=== PATIENT | female | born 1975 | race Caucasian/White ===

== ENCOUNTER 2016-12-04 09:15 | Emergency (ER) | payer BC ==
[2016-12-04 09:53] LABS: BASOPHILS % 0.2 (0.0-1.5); EOSINOPHILS % 0.3 % (0.0-6.8); LYMPHOCYTES # 1.3 # k/uL (0.6-4.0); MEAN CORPUSCULAR HEMOGLOBIN 23.9 pg (28.0-34.0); MONOCYTES # 0.5 # k/uL (0.0-0.9); MONOCYTES % 6.5 % (0.0-11.0); NEUTROPHILS # 5.7 # k/uL (1.4-7.7)
[2016-12-04 10:04] LABS: eGFR (African) > 60; eGFR (Non-African) > 60
[2016-12-04] MEDS ORDERED: NITROGLYCERIN IV ONE (10:17)
[2016-12-04] MEDS ORDERED: DEXTROSE IV ONE (10:17)
[2016-12-04] MEDS ORDERED: HEPARIN SODIUM,PORCINE/D5W 20,000 UNIT in PREMIX BAG 1 BAG IV ONE (10:17)
[2016-12-04] MEDS ORDERED: HEPARIN SODIUM 5000 UNIT/1 ML IV ONE (10:17)
[2016-12-04] MEDS ORDERED: HEPARIN SODIUM,PORCINE/D5W 20,000 UNIT/500 ML BAG IV ONE (10:21)
[2016-12-04] MEDS ORDERED: NITROGLYCERIN/D5W 50 MG/250 ML ML IV ONE (10:21)
[2016-12-04] MEDS ORDERED: HEPARIN SODIUM 5000 UNIT/1 ML ONE (10:21)
--- NOTE | 2016-12-04 10:27 | ED Physician Documentation ---
Dyspnea - HISTORIAN Historian: patient - HPI Stated Complaint: Shortness of Breath Chief Complaint: Dyspnea Additional Information: dyspnea with exertion since yesterday, new, no chest pain Onset: days ago (1) Duration: continues in ED Initiating Event: out of meds (pt. cannot afford medications so she doesn't take her heart meds) Context: exertional Severity: moderate Exacerbated By: exertion Associated Symptoms: heart racing, light-headedness, hands tingling, face tingling Further Comments: no - ROS CONST: no problems EYES/ENT: none GI/: none LNMP: 11/20/16 NEURO/PSYCH: denies: headache MS/SKIN/LYMPH: none - PAST HX Lung Disease: none Cardiac Disease: CHF, CAD PE Risk Factors: other (medication nooncompliance) Surgeries/Procedures: cardiac bypass, cardiac cath, other (c-sect) Other History: other (lupus) Immunizations: referred to PCP Allergies/Adverse Reactions: Allergies Allergy/AdvReac Type Severity Reaction Status Date / Time No Known Drug Allergies Allergy Unknown Verified 12/04/16 09:41 Home Medications: Ambulatory Orders Medication Instructions Recorded Naproxen [Naprosyn] 500 mg PO DAILY 04/30/15 Aspirin EC [Ecotrin] 81 mg PO DAILY 02/01/16 - SOCIAL HX Smoking History: cigarettes (1 ppd) Alcohol Use: none Drug Use: none - FAMILY HX Family History: cardiac disease - VITAL SIGNS Vital Signs: Vital Signs Temp Pulse Resp BP Pulse Ox 97 F L 100 H 24 128/76 98 12/04/16 09:15 12/04/16 09:15 12/04/16 09:15 12/04/16 09:15 12/04/16 09:15 - REVIEWED ASSESSMENTS Nursing Assessment Reviewed: Yes Vitals Reviewed: Yes Progress - Results/Orders Results/Orders: cbc, cmp, ua, pt/ptt/inr, trop, bnp, ekg, cxr, ct abd. without contrast ordered - Progress Progress: Pt. started on 2 liters O2 NC, NS at KVO, Nitro drip at 6ml/hr, Heparin 5000 IU IVP and drip at 1200 IU/hr, asa 324 mg p.o. Critical Care Note - Critical Care Note Total Time (mins): 30 Comments: pt. presents in dyspneic state, work up shows acute MD, non stemi ED Results Lab/Radiology - Lab Results Lab Results: Lab Results 12/04/16 12/04/16 12/04/16 09:45 09:45 09:45 WBC 7.60 K/ul K/ul (4.00-12.00) RBC 4.31 M/ul M/ul (3.90-5.20) Hgb 10.3 g/dL L g/dL (12.0-16.0) Hct 35.4 % % (34.5-46.5) MCV 82.2 fl fl (80.0-100.0) MCH 23.9 pg L pg (28.0-34.0) MCHC 29.1 g/dL L g/dL (30.0-36.0) RDW 16.2 % H % (11.3-14.3) Plt Count 225 K/mm3 K/mm3 (130-400) Neut % (Auto) 74.4 % % (39.0-79.0) Lymph % (Auto) 17.3 % % (16.0-50.0) [place] % (Auto) 6.5 % % (0.0-11.0) Eos % (Auto) 0.3 % % (0.0-6.8) Baso % (Auto) 0.2 (0.0-1.5) Neut # 5.7 # k/uL # k/uL (1.4-7.7) Lymph # 1.3 # k/uL # k/uL (0.6-4.0) [place] # 0.5 # k/uL # k/uL (0.0-0.9) Eos # 0.0 # k/uL # k/uL (0.0-0.6) Baso # 0.0 # k/uL # k/uL (0.0-0.5) Reactive Lymphs % 1.3 % % (0.0-5.0) Reactive Lymphs # 0.1 # k/uL # k/uL (0.0-0.8) Sodium 142 mmol/L mmol/L (136-145) Potassium 4.2 mmol/L mmol/L (3.5-5.0) Chloride 106 mmol/L mmol/L (98-110) Carbon Dioxide 26 mmol/L mmol/L (20-32) BUN 18 mg/dL mg/dL (10-26) Creatinine 0.8 mg/dL mg/dL (0.4-1.5) Estimated Creat Clear 165 Est GFR ( Amer) > 60 (60 - ) Est GFR (Non-Af Amer) > 60 (60 - ) Glucose 131 mg/dL H mg/dL (70-99) Calcium 10.1 mg/dL mg/dL (8.5-10.5) Total Bilirubin 0.7 mg/dL mg/dL (0.2-1.2) AST 24 U/L U/L (0-41) ALT 14 U/L U/L (0-45) Alkaline Phosphatase 96 U/L U/L (46-116) Troponin I 2.36 ng/mL H ng/mL (0.03-0.06) NT-Pro-B Natriuret Pep 5859.5 pg/mL H pg/mL (15.0-125.0) Total Protein 8.0 g/dL g/dL (6.0-8.5) Albumin 4.1 g/dL g/dL (3.0-5.5) - Radiology Radiology Impressions: cxr shows dilated cardiomyopathy, right sided lung mass, CABG sternotomy wires - Orders Orders: ED Orders Category Date Time Status Continuous EKG monitoring Q1H Care 12/04/16 09:42 Active Continuous Pulse Oximetry Q1H Care 12/04/16 09:[address] Saline Lock/IV Now Care 12/04/16 09:42 Active CHEST 2 VIEW [CHEST P.A.&LAT 2 VIEWS] [RAD] Stat Exams 12/04/[address] ABD & PELVIS W/O CON Stat Exams 12/04/16 Ordered BNP [NT-proBNP] Routine Lab 12/04/16 09:45 Completed CBC/PLATELET/DIFF Routine Lab 12/04/16 09:45 Completed CMP Routine Lab 12/04/16 09:45 Completed HCG [URINE HCG] Routine Lab 12/04/16 Uncollected PT [PT-INR] Routine Lab 12/04/16 Ordered PTT Routine Lab 12/04/16 Ordered TROPONIN I (cTnI) Routine Lab 12/04/16 09:45 Completed URINALYSIS Routine Lab 12/04/16 10:04 Ordered Heparin Sodium [Heparin] Med 12/04/16 10:21 Discontinued 5,000 unit .ROUTE .STK-MED ONE Heparin Sodium [Heparin] Med 12/04/16 10:17 Once 5,000 unit IV NOW ONE Heparin Sodium,Porcine/D5w [Heparin] Med 12/04/16 10:21 Discontinued 20,000 unit in 500 ml IV .STK-MED Heparin Sodium,Porcine/D5w [Heparin] 20,000 unit Med 12/04/16 10:17 Ordered Premix Bag [Premix Fluid] 1 bag IV NOW NITROGLYCERIN/D5W @ 6 MLS/HR(250ml) Med 12/04/16 10:17 Ordered Nitroglycerin/D5w [Ntg 0.2 mg/ml in D5w] 250 ml IV 1T EKG WITH COMPARISON Stat Ther 12/04/16 09:42 Ordered Dyspnea Physical Exam - EXAM General Appearance: moderate distress EENT: eye inspection normal, ENT inspection normal, pharynx normal, no signs of dehydration, DEIRDRE, no nystagmus, TM's nml Neck: nml inspection (no bruits, no jvd) Respiratory: breath sounds nml, speaks full sentences, respiratory distress ( mild). No: prolonged expirations, dull on percussion, retractions, splinting, accessory muscle use, decreased air movement, wheezes, rales, stridor CVS: reg. rate & rhythm, pulses equal, murmur Abdomen: non-tender, other (positive fluid wave) Skin: no rash, pallor. No: diaphoresis Extremities: non-tender, normal range of motion, no evidence of injury, no edema Neuro/Psych: oriented x3, CN's nml as tested, motor nml, sensation nml, mood/ affect nml Discharge Clincal Impression: Acute MD Qualifiers: Myocardial infarction ST status: non-ST elevation myocardial infarction Qualified Code(s): I21.4 - Non-ST elevation (NSTEMI) myocardial infarction Referrals: Arelis Vaughan MD [Primary Care Provider] - 2 Days Home Medications: Ambulatory Orders Naproxen [Naprosyn] 500 mg PO DAILY 04/30/15 Aspirin EC [Ecotrin] 81 mg PO DAILY 02/01/16 Comments: Case discussed with Dr. Vasquez at [facility] who accepts transfer. Pt. transferred by ground EMS in stable condition. Condition: Stable Disposition: 02 XFER SHT-TRM HOSP Decision to Admit: NO Decision Time: 10:45
[2016-12-04] MEDS ORDERED: 0.9 % SODIUM CHLORIDE 1,000 ML IV ONE (10:34)
[2016-12-04] MEDS ORDERED: 0.9 % SODIUM CHLORIDE 1,000 ML IV SCH (11:00)
[2016-12-04] MEDS ORDERED: ASPIRIN 81 MG CHEW TAB ONE (11:06)
[2016-12-04] MEDS ORDERED: ASPIRIN 325 MG TABLET PO ONE (11:06)
[2016-12-04 11:29] VITALS: BP 131/92
--- NOTE | 2016-12-04 15:49 | Diagnostic Imaging Report ---
[facility] [address] [facility].[address] [address] Report Submission Date: Dec 04, 2016 10:51:44 AM SHOE ASSOCIATE Patient Study Name: PORFIRIO MADRID Date: Dec 04, 2016 10:11:08 AM SHOE ASSOCIATE Modality Type: CR Gender: F Description: CHEST : 77 Institution: [facility] Physician: JULISSA BYNUM Chest -two views CLINICAL HISTORY: Shortness of breath. FINDINGS: Examination of the chest in PA and lateral views with comparison to examination 02/01/2016 demonstrates 3.8 cm right lower lobe mass that does not appear significantly changed in size. The cardiac silhouette is enlarged and the aorta is atherosclerotic. There are multiple sternotomy wires. Monitor leads superimpose the chest. There are surgical clips consistent with previous bypass grafting. IMPRESSION: Right lower lobe mass without significant change since 02/01/2016. Postoperative chest. Cardiomegaly and aortic atherosclerosis. Electronically signed on Dec 04, 2016 10:51:44 AM SHOE ASSOCIATE by: Raymon MYERS
--- NOTE | 2016-12-04 15:49 | Diagnostic Imaging Report ---
[facility] [address] [facility] [address] [place], [place]. 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 TECHNIQUE: CT of the abdomen and pelvis is performed without oral or intravenous administration of contrast. Sagittal and coronal reconstructions are performed by the technologist. FINDINGS: There is right lower lobe mass that is incompletely visualized, but measures 2.2 cm on the available image. This is the superior most slice of the examination and may not completely include the mass. Heart is enlarged. There is right pleural effusion. Liver and spleen demonstrate fairly normal attenuation without focal defect. Gallbladder is contracted with small gallstone. There is fluid in the gallbladder fossa and a small amount of fluid adjacent to the liver. There is no pancreatic or adrenal abnormality. The kidneys are of normal size, shape and position. Vascular calcification is present in the abdominal aorta extending into the iliac vessels. There is a small amount of free fluid in the pelvis. There are clips in the pelvis consistent with previous tubal ligation. The uterus is unremarkable. The appendix is visualized and is within normal limits. Stool is present throughout the colon. IMPRESSION: Incompletely visualized 2.2 cm mass in right lower lobe. Small amount of ascites and small right pleural effusion. Cholelithiasis. Negative appendix. Bilateral spondylolysis at L5 with grade 1 anterolisthesis of L5 on S1. Electronically signed on Dec 04, 2016 10:55:45 AM RETAIL ADVERTISING SALES MANAGER by: Raymon MYERS
== END 2016-12-04 11:18 | disposition short-term general hospital (02) ==
LOC: ED 09:15
DX: I21.4 Non-ST elevation (NSTEMI) myocardial infarction (principal)
CPT/HCPCS: 36415; 71020; 74176; 80053; 83880; 84484; 85025; 85610; 85730; A9270; J1644; J3490; J7030; 96365; 96366; 99284; S1016

== ENCOUNTER 2016-12-09 12:25 | Emergency (ER) | payer BC ==
[2016-12-09 12:42] LABS: BASOPHILS % 0.5 (0.0-1.5); EOSINOPHILS % 0.7 % (0.0-6.8); LYMPHOCYTES # 2.7 # k/uL (0.6-4.0); MEAN CORPUSCULAR HEMOGLOBIN 23.5 pg (28.0-34.0); MONOCYTES # 0.8 # k/uL (0.0-0.9); MONOCYTES % 6.9 % (0.0-11.0); NEUTROPHILS # 7.2 # k/uL (1.4-7.7)
[2016-12-09 12:58] LABS: eGFR (African) > 60; eGFR (Non-African) > 60
--- NOTE | 2016-12-09 13:21 | ED Physician Documentation ---
Chest Pain - HISTORIAN Historian: patient - HPI Stated Complaint: shortness of breath, dizzy, chest pain Chief Complaint: Chest Pain Onset: days ago (2 days ago) Timing: still present Duration: waxing, waning Last known Well Date: 12/05/16 Last Known Well Time: 22:00 Quality: stabbing (when she bends over) Chest Pain Radiation: no radiation Chest Pain Signs/Symptoms: dizziness, dyspnea Worsened By: exertion Relieved By: nothing Further Comments: yes (41 year old female patient presents with complaints of SOB and chest pain when she bends over. Patient complaints of SOB with exerction. Patient reports having cardiac stent placed on Wednesday at [facility], does not know which vessel. States she has not felt well for the past 2 days, is concerned her "stent isn't working".) - ROS CONST: recent illness MS/LYMPH: none GI/: abdominal pain. denies: vomiting, nausea EYES/ENT: none SKIN/ENDO: none NEURO/PSYCH: none - PAST HX IL risk factors: hyperlipidemia, cardiac disease, AMI, CHF TAD/AAA risk factors: none Neuro deficit: none GI disease: gall stones Surgeries/Procedures: cardiac bypass, cardiac stent Allergies/Adverse Reactions: Allergies Allergy/AdvReac Type Severity Reaction Status Date / Time No Known Drug Allergies Allergy Unknown Verified 12/04/16 09:41 Home Medications: Ambulatory Orders Medication Instructions Recorded Naproxen [Naprosyn] 500 mg PO DAILY 04/30/15 Aspirin EC [Ecotrin] 81 mg PO DAILY 02/01/16 - SOCIAL HX Smoking History: cigarettes - FAMILY HX Family HX: CAD under 55 - VITAL SIGNS Vital Signs: Vital Signs Temp Pulse Resp BP Pulse Ox 97.9 F 88 22 125/77 98 12/09/16 12:25 12/09/16 12:25 12/09/16 12:25 12/09/16 12:25 12/09/16 12:25 - REVIEWED ASSESSMENTS Nursing Assessment Reviewed: Yes Vitals Reviewed: Yes Progress - Progress Progress: Patient very mottled and cool to touch on arrival, poor historian. Records reviewed from Wednesday12/04/2015 - Trop 2.36, BNP 5859.5 Lab results reviewed, will progress with CT chest to R/O dissection or PE. Troponin down to .9 1410 Call to [facility], on bed hold 1418 Updated patient, agrees to transfer to [place]. Call to [place] [address] Spoke with [place], case discussed with Dr Allen. [address] Allen. 800cc output in [place] after Lasix IV ED Results Lab/Radiology - Lab Results Lab Results: Lab Results 12/09/16 12/09/16 12/09/16 12:40 12:40 12:40 WBC RBC Hgb Hct MCV MCH MCHC RDW Plt Count Neut % (Auto) Lymph % (Auto) Isabela % (Auto) Eos % (Auto) Baso % (Auto) Neut # Lymph # Isabela # Eos # Baso # Reactive Lymphs % Reactive Lymphs # PT 12.9 Seconds H Seconds (9.7-11.5) INR 1.2 H (0.9-1.1) APTT 20.6 Seconds L Seconds (24.5-32.8) Sodium 138 mmol/L mmol/L (136-145) Potassium 3.9 mmol/L mmol/L (3.5-5.0) Chloride 103 mmol/L mmol/L (98-110) Carbon Dioxide 30 mmol/L mmol/L (20-32) BUN 22 mg/dL mg/dL (10-26) Creatinine 0.9 mg/dL mg/dL (0.4-1.5) Est GFR ( Amer) > 60 (60 - ) Est GFR (Non-Af Amer) > 60 (60 - ) Glucose 139 mg/dL H mg/dL (70-99) Calcium 9.7 mg/dL mg/dL (8.5-10.5) Total Bilirubin 0.5 mg/dL mg/dL (0.2-1.2) AST 28 U/L U/L (0-41) ALT 34 U/L U/L (0-45) Alkaline Phosphatase 94 U/L U/L (46-116) Creatine Kinase 44 U/L U/L (0-225) Troponin I 0.90 ng/mL H ng/mL (0.03-0.06) Total Protein 8.2 g/dL g/dL (6.0-8.5) Albumin 4.1 g/dL g/dL (3.0-5.5) 12/09/16 12:40 WBC 11.10 K/ul K/ul (4.00-12.00) RBC 4.79 M/ul M/ul (3.90-5.20) Hgb 11.2 g/dL L g/dL (12.0-16.0) Hct 39.9 % % (34.5-46.5) MCV 83.4 fl fl (80.0-100.0) MCH 23.5 pg L pg (28.0-34.0) MCHC 28.1 g/dL L g/dL (30.0-36.0) RDW 19.7 % H % (11.3-14.3) Plt Count 245 K/mm3 K/mm3 (130-400) Neut % (Auto) 65.2 % % (39.0-79.0) Lymph % (Auto) 24.5 % % (16.0-50.0) Isabela % (Auto) 6.9 % % (0.0-11.0) Eos % (Auto) 0.7 % % (0.0-6.8) Baso % (Auto) 0.5 (0.0-1.5) Neut # 7.2 # k/uL # k/uL (1.4-7.7) Lymph # 2.7 # k/uL # k/uL (0.6-4.0) Isabela # 0.8 # k/uL # k/uL (0.0-0.9) Eos # 0.1 # k/uL # k/uL (0.0-0.6) Baso # 0.0 # k/uL # k/uL (0.0-0.5) Reactive Lymphs % 2.2 % % (0.0-5.0) Reactive Lymphs # 0.2 # k/uL # k/uL (0.0-0.8) PT INR APTT Sodium Potassium Chloride Carbon Dioxide BUN Creatinine Est GFR ( Amer) Est GFR (Non-Af Amer) Glucose Calcium Total Bilirubin AST ALT Alkaline Phosphatase Creatine Kinase Troponin I Total Protein Albumin - Radiology Radiology Impressions: Computed tomography of the chest with contrast History: 2 days of shortness of breath and chest pain Findings: Transverse chest sections are obtained after 86 mL intravenous omnipaque 350. Small left and moderate right pleural effusions and artery bypass grafting, mild diffuse cardiomegaly, and pulmonary edema are observed. Patchy subsegmental infiltrate or edema is observed in the right middle lobe and right lower lobe. Mild left lower lobe atelectasis is present. An oval 2.8 x 2.9 cm lateral right lower lobe mass is present. Multiple enlarged lymph nodes are present in each axilla left supraclavicular region, and throughout the mediastinum. Upper abdomen sections reveal splenomegaly and right subphrenic ascites. Compared to the exam performed 5 days ago, basilar infiltrates or edema and pleural effusions have markedly increased. Impression: 1. Worsening anasarca with increased pulmonary edema and pleural effusions since the prior abdomen CT. 2. Interval development of bibasilar infiltrates versus confluent edema and atelectasis. 3. 2.9 cm lateral right lower lobe neoplasm as described 5 days ago[address] Recommend PET CT followup. 4. Indeterminate left supraclavicular, mediastinal, and bilateral hilar lymphadenopathy with splenomegaly. Lymphoproliferative disease cannot be excluded. 5. Coronary artery bypass grafting and global cardiomegaly. Electronically signed on Dec 09, 2016 1:44:58 PM PARKING TECHNICIAN by: Aris Escalante - Orders Orders: ED Orders Category Date Time Status Continuous EKG monitoring Q30M Care 12/09/16 12:35 Active Continuous Pulse Oximetry Q30M Care 12/09/16 12:[address] Saline Lock/IV NOW Care 12/09/16 12:[address] CHEST W/ CONTRAST Stat Exams 12/09/16 Ordered CBC/PLATELET/DIFF Stat Lab 12/09/16 12:40 Completed CMP Stat Lab 12/09/16 12:40 Completed CREATINE KINASE Stat Lab 12/09/16 12:40 Completed PT-INR Stat Lab 12/09/16 12:40 Completed PTT Stat Lab 12/09/16 12:40 Completed TROPONIN I (cTnI) Stat Lab 12/09/16 12:40 Completed UA W/MICRO IF INDICATED Stat Lab 12/09/16 12:35 Ordered Oxygen Daily Oxygen 12/09/16 12:45 Ordered EKG WITH COMPARISON Stat Ther 12/09/16 12:35 Ordered Chest Pain Physical Exam - EXAM General Appearance: moderate distress EENT: eye inspection normal, ENT inspection normal, pharynx normal, no signs of dehydration, DEIRDRE, no nystagmus, TM's nml Respiratory: no resp. distress, chest non-tender, decreased air movement ( bilateral bases) CVS: reg. rate & rhythm, no murmur, no gallop, no friction rub, pulses full, pulses equal Abdomen: soft, no organomegaly, normal bowel sounds, no abdominal bruit, non- tender (denies abd pain with palpation, no CVA tenderness), distended Skin: cyanosis, mottled (arms and abdomen, very cool to touch. 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 Neuro: oriented X3, CN's nml as tested, motor nml, sensation nml, mood/affect nml Discharge Clincal Impression: Status post coronary artery stent placement CHF (congestive heart failure) Qualifiers: Congestive heart failure type: unspecified congestive heart failure type Congestive heart failure chronicity: acute Qualified Code(s): I50.9 - Heart failure, unspecified Iron deficiency anemia Qualifiers: Iron deficiency anemia type: inadequate dietary iron intake Qualified Code(s): D50.8 - Other iron deficiency anemias Home Medications: Ambulatory Orders Naproxen [Naprosyn] 500 mg PO DAILY 04/30/15 Aspirin EC [Ecotrin] 81 mg PO DAILY 02/01/16 Condition: Fair Disposition: 02 XFER SHT-TRM HOSP Decision to Admit: NO Decision Time: 15:05
[2016-12-09] MEDS: FUROSEMIDE 40 MG/4 ML VIAL IVP ONE (14:15)
[2016-12-09 14:31] LABS: APPEARANCE,URINE Slightly Cloudy (CLEAR); COLOR,URINE Orange (YELLOW); OCCULT BLOOD,URINE 3+ (NEGATIVE); PH URINE 5.5 (5.0 - 8.0)
[2016-12-09 14:41] LABS: AMORPHOUS SEDIMENT,UR FEW (NEGATIVE)
--- NOTE | 2016-12-09 15:24 | Diagnostic Imaging Report ---
[facility] [address] [facility] [address] [place], [place]. [address] Report Submission Date: Dec 09, 2016 1:44:58 PM SHEEP BONER Patient Study Name: PORFIRIO MADRID Date: Dec 09, 2016 1:18:45 PM SHEEP BONER Modality Type: CT\SR Gender: F Description: CT CHEST W/ CONTRAST : 77 Institution: [facility] Physician: EDWARD MUSA Computed tomography of the chest with contrast History: 2 days of shortness of breath and chest pain Findings: Transverse chest sections are obtained after 86 mL intravenous omnipaque 350. Small left and moderate right pleural effusions and artery bypass grafting, mild diffuse cardiomegaly, and pulmonary edema are observed. Patchy subsegmental infiltrate or edema is observed in the right middle lobe and right lower lobe. Mild left lower lobe atelectasis is present. An oval 2.8 x 2.9 cm lateral right lower lobe mass is present. Multiple enlarged lymph nodes are present in each axilla left supraclavicular region, and throughout the mediastinum. Upper abdomen sections reveal splenomegaly and right subphrenic ascites. Compared to the exam performed 5 days ago, basilar infiltrates or edema and pleural effusions have markedly increased. Impression: 1. Worsening anasarca with increased pulmonary edema and pleural effusions since the prior abdomen CT. 2. Interval development of bibasilar infiltrates versus confluent edema and atelectasis. 3. 2.9 cm lateral right lower lobe neoplasm as described 5 days [address] PET CT followup. 4. Indeterminate left supraclavicular, mediastinal, and bilateral hilar lymphadenopathy with splenomegaly. Lymphoproliferative disease cannot be excluded. 5. Coronary artery bypass grafting and global cardiomegaly. Electronically signed on Dec 09, 2016 1:44:58 PM SHEEP BONER by: Aris MYERS
[2016-12-09 18:59] VITALS: BP 118/83
== END 2016-12-09 15:30 | disposition short-term general hospital (02) ==
LOC: ED 12:25
DX: I50.9 Heart failure, unspecified (principal); D50.8 Other iron deficiency anemias; Z95.818 Presence of other cardiac implants and grafts
CPT/HCPCS: 71260; 80053; 81002; 82550; 83880; 84484; 85025; 85610; 85730; J1940; Q9966; 51702; 99283; 99284; S1016

== ENCOUNTER 2017-08-31 13:12 | Emergency (ER) | payer SELFPAY ==
--- NOTE | 2017-08-31 13:35 | ED Physician Documentation ---
General Adult - HISTORIAN Historian: patient - HPI Stated Complaint: abdominal pain Chief Complaint: Abdominal Pain Onset: days ago (4) Timing: worse Severity: severe Modifying Factors: "nothing helps" "coughing increases the pain" Context: dull and feeling swollen until he coughs and then it is sharp and burning Quality: swollen and sharp Further Comments: no Last known Well Date: 08/25/17 Last Known Well Time: 08:00 Last known Well Code/Unknown Code: Unknown - ROS CONST: weakness, other (swelling in abdomen and legs ). denies: sweating, recent illness, weight loss EYES/ENT: none CVS/RESP: shortness of breath. denies: cough GI/: abdominal pain, nausea. denies: problems urinating, vomiting, diarrhea MS/SKIN/LYMPH: other (rash from bed bugs ) NEURO/PSYCH: headache, dizziness - PAST HX Past History: other (she has had a [place] and she has CHF - she does not take any meds due to cost ) Other History: none Surgeries/Procedures: other (CABBGE and stents x 4 ) Immunizations: referred to PCP Allergies/Adverse Reactions: Allergies Allergy/AdvReac Type Severity Reaction Status Date / Time No Known Drug Allergies Allergy Unknown Verified 08/31/17 14:15 Home Medications: Ambulatory Orders Medication Instructions Recorded Aspirin EC [Ecotrin] 81 mg PO DAILY 02/01/16 Atorvastatin Calcium 80 mg PO 12/09/16 Doxycycline Hyclate 100 mg PO BID #10 tablet 05/27/17 diphenhydrAMINE HCL [Benadryl] 25 mg PO HS 05/27/17 - SOCIAL HX Smoking History: non-smoker Alcohol Use: none Drug Use: none - FAMILY HX Family History: No - VITAL SIGNS Vital Signs: Vital Signs Temp Pulse Resp BP Pulse Ox 142/90 05/27/17 16:55 - REVIEWED ASSESSMENTS Nursing Assessment Reviewed: Yes Vitals Reviewed: Yes Progress - Results/Orders Results/Orders: o2 decreased to 78-80% oxygen increased to 3 L (1500) Report to [facility] at [place] [address] Tal SALES Results Lab/Radiology - Radiology Radiology Impressions: Examination: Portable chest History: Chest discomfort Comparison exam: 04 December 2016 Findings: Single view of the chest demonstrates enlarged cardiac silhouette: Stable the prior study. Post cardiac surgical changes and sternotomy wires. Stable density right lower lung. Osseous structures are appropriate for age. Impression: Cardiomegaly and stable right lower lung density - Correlate with prior CT exam examination. No acute infiltrate/effusion. Electronically signed on Aug 31, 2017 2:37:47 PM CDT by: Dylan Cruz General Adult Physical Exam - PHYSICAL EXAM GENERAL APPEARANCE: mild distress RESPIRATORY: other (mildly short of breath moderate with speaking ) CVS: reg rate & rhythm, other (murmur ) ABDOMEN: other (protruberant abdomen with decreased bowel sounds) BACK: other (left calf with 7 cm x 9 cm area that is crusted, left second toe 2cm x 2 cm red and open area (she states shei is fighting bed bugs) ) EXTREMITIES: tenderness NEURO: oriented X3, CN's nml as tested Discharge Clincal Impression: Troponin level elevated Referrals: Arelis Vaughan MD [Primary Care Provider] - 2 Days Condition: Critical Disposition: 02 [facility] Decision to Admit: [id number] Date of Decison to Admit: 08/31/17 Decision Time: 15:23
[2017-08-31 14:03] LABS: BASOPHILS % 0.3 (0.0-1.5); EOSINOPHILS % 1.4 % (0.0-6.8); MEAN CORPUSCULAR VOLUME 79.8 fl (80.0-100.0); MONOCYTES % 4.7 % (0.0-11.0); NEUTROPHILS # 7.4 # k/uL (1.4-7.7)
[2017-08-31 14:20] LABS: eGFR (African) > 60; eGFR (Non-African) > 60
[2017-08-31] MEDS ORDERED: ASPIRIN 81 MG CHEW TAB ONE (14:28)
[2017-08-31] MEDS ORDERED: ASPIRIN 81 MG CHEW TAB PO ONE (14:37)
[2017-08-31] MEDS ORDERED: CLOPIDOGREL BISULFATE 75 MG TABLET PO ONE (14:39)
[2017-08-31] MEDS ORDERED: CLOPIDOGREL BISULFATE 75 MG TABLET ONE (14:40)
[2017-08-31] MEDS ORDERED: ENOXAPARIN SODIUM 100 MG/ML DISP.SYRIN SQ ONE (14:45)
[2017-08-31] MEDS ORDERED: ENOXAPARIN SODIUM 80 MG/0.8 ML DISP.SYRIN SQ ONE (14:47)
[2017-08-31 15:45] VITALS: BP 125/94
--- NOTE | 2017-08-31 15:50 | Diagnostic Imaging Report ---
CHARY WADDELL [facility] [address] [facility] [address] [place], [place]. [address] Report Submission Date: Aug 31, 2017 2:37:47 PM CDT Patient Study Name: PORFIRIO MADRID Date: Aug 31, 2017 2:22:31 PM CDT Modality Type: CR Gender: F Description: CHEST : 77 Institution: [facility] Physician: CHARY WADDELL Examination: Portable chest History: Chest discomfort Comparison exam: 04 December 2016 Findings: Single view of the chest demonstrates enlarged cardiac silhouette: Stable the prior study. Post cardiac surgical changes and sternotomy wires. Stable density right lower lung. Osseous structures are appropriate for age. Impression: Cardiomegaly and stable right lower lung density - Correlate with prior CT exam examination. No acute infiltrate/effusion. Electronically signed on Aug 31, 2017 2:37:47 PM CDT by: Dylan MYERS
== END 2017-08-31 15:41 | disposition short-term general hospital (02) ==
LOC: ED 13:12
DX: R79.89 Other specified abnormal findings of blood chemistry (principal)
CPT/HCPCS: 71020; 80053; 83880; 84484; 85025; 93005; J1650; 96374; 99284; S1016